=== PATIENT | female | born 1985 | race Two or more races ===

== ENCOUNTER 2018-06-13 07:54 | Emergency (ER) | payer SELFPAY, OTHER ==
[2018-06-13] MEDS: predniSONE 20 MG TAB PO (08:48)
== END 2018-06-13 09:14 | disposition home or self-care (01) ==
LOC: M ED 07:54
DX: R60.0 Localized edema (principal); L50.9 Urticaria, unspecified; L29.9 Pruritus, unspecified; S00.86XA Insect bite (nonvenomous) of other part of head, initial encounter; S60.561A Insect bite (nonvenomous) of right hand, initial encounter; S60.562A Insect bite (nonvenomous) of left hand, initial encounter; W57.XXXA Bitten or stung by nonvenomous insect and other nonvenomous arthropods, initial encounter; Y92.89 Other specified places as the place of occurrence of the external cause
CPT/HCPCS: 99283